=== PATIENT | male | born 1960 | race Caucasian/White ===

== ENCOUNTER 2023-09-12 06:10 | Day surgery (SDC) | payer OTHER, SELFPAY ==
[2023-08-10 13:31] VITALS: BMI 25.6
[2023-09-12 06:20] VITALS: BMI 25.6
[2023-09-12 06:21] VITALS: BP 123/77
[2023-09-12] MEDS: TYLENOL 1000 MG PO (06:27)
[2023-09-12] MEDS: LYRICA 150 MG PO (06:27)
[2023-09-12] MEDS: CELEBREX 200 MG PO (06:27)
[2023-09-12] MEDS: NORMOSOL-R 1000 IV (06:40)
[2023-09-12 08:28] VITALS: BP 115/73
[2023-09-12 08:30] VITALS: BP 103/75
--- NOTE | 2023-09-12 08:32 | OR.RPT ---
Operative Report
Operative Report
DATE OF OPERATION: 09/12/2023
SURGEON: Brandon Gonzalez MD
PREOPERATIVE DIAGNOSIS: Perianal cysts
POSTOPERATIVE DIAGNOSIS: Perianal cyst
OPERATION: Exam under anesthesia, biopsy of perianal cyst, unroofing of perianal cyst, bilateral pudendal nerve block
ASSISTANTS:
1. None
ANESTHESIA: MAC w/ local
ESTIMATED BLOOD LOSS: 2 mL
FINDINGS:
1. Multiple, about 25, small 2 to 3 mm perianal cysts, likely epidermoid cysts, in the perianal region circumferentially but primarily in the left lateral and right lateral positions
2. Biopsied one perianal cyst in the left anterior position and unroofed the remainder
SPECIMENS:
1. Perianal cyst
DRAINS: None
COMPLICATIONS: None
INDICATIONS: The patient is a 63-year-old male who had unroofing of perianal lesions many years ago and presented with recurrence. He wasn't sure what they were many years ago. On exam, the diagnosis was not 100% clear, but most likely epidermoid
cysts versus comedones. I offered an exam under anesthesia and biopsy of one of the cysts in order to confirm the diagnosis, with which the patient agreed. Therefore, the patient was recommended to have surgery. The operation was discussed with
the patient in detail, including the risks, benefits and alternatives. Risks described included, but not limited to bleeding, infection, urinary retention, damage to nearby structures such as the anal sphincter, fecal incontinence, recurrence, and
anesthetic risks. The patient understood and agreed to proceed. The consent was signed and placed in the chart.
PROCEDURE IN DETAIL: The patient was taken to the operating room and placed on the operating table in prone position. Sequential compression devices were placed bilaterally. Sedation was commenced without complication. Two seat belts were secured
around the legs and upper back. The buttocks were taped apart. The perineum was shaved, prepped and draped in the usual fashion. A time-out was then performed verifying the correct patient, procedure, operative site, positioning, and special
equipment.
Local anesthesia used was a mixture of 60 mL of 0.25% Marcaine without epinephrine (with epinephrine was on backorder) and 0.6 mg of dexamethasone. 40 mL was injected perianally at the beginning of the case. The anorectal exam was performed
assessing all four quadrants of the anal canal using Hill-Silver retractors in progressively increasing size. There was a small right posterior external hemorrhoid and small left lateral external hemorrhoid, not thrombosed or irritated. There
were small/physiologic, internal hemorrhoids that were not irritated or bleeding. Again noted were the multiple perianal cysts in the perianal region, each about 2 to 3 mm in size and associated with hair follicles, primarily located in the right
and left lateral positions.
I biopsied one of the perianal cysts in the left anterior position by raising it with a forceps and excising with Metzenbaum scissors. This was passed off as specimen. The remaining wound was about 5 mm x 5mm. Hemostasis was achieved with
electrocautery. The remaining cysts were nicked with an 11 blade scalpel and the contents were extruded by manually expressing the cyst. The contents from each cyst appeared white/atkinson-colored, like sebum, and most had 1-2 hair follicles involved.
After all of the cysts were expressed, the perianal region was irrigated and assessed for hemostasis, which was assured. At the end of the case, the remaining 20 mL of local were injected. 5 mL was injected bilaterally for a pudendal nerve block.
10 mL was injected around the surgical site and perianally.
At this point, the procedure was complete. All needle, sponge and instrument counts were correct. The patient tolerated the procedure well and was transferred to the recovery room in stable condition with gauze dressing in place secured with silk
tape.
DICTATED BY: Brandon Gonzalez MD
== END 2023-09-12 09:25 | disposition home or self-care (01) ==
LOC: SDS 06:10
PROVIDERS: ATTENDING PHYSICIAN Surgery
DX: K62.89 Other specified diseases of anus and rectum (principal)
CPT/HCPCS: 45990; 46606; 88305; 36415; 93005